=== PATIENT | female | born 1955 | race Two or more races ===

== ENCOUNTER → 2024-07-22 | Outpatient (CLI) | payer OTHER, MEDICAID, SELFPAY ==
--- NOTE | 2024-07-22 14:05 | XR_ITS ---
Examination: Bone densitometry Date and time of exam:July 22, 2024 1414 hours INDICATIONS: Menopause age 50, family history mother osteoporosis, history postmenopausal left wrist fracture, personal history osteopenia Technique: Lumbar spine and hip total bone mineralization values of an calculated. Peak reference and age match control results have been displayed. Findings: Lumbar spine total bone mineralization is0.964 gm/cm2. This is 0.8 standard deviations below peak reference. This is 1.3 standard deviations above age-matched controls. Hip total bone mineralization is 0.925 gm/cm2 This is 0.3 standard deviations below peak reference. This is 1.1 standard deviations above age-matched controls Impression: There is normal mineralization based on lumbar spine measurements. There is osteopenia based on hip measurements Lumbar mineralization is increase 7.3% compared with April 29, 2022 Hip mineralization is increased 1.4% compared with April 29, 2022
== END | disposition home or self-care (01) ==
PROVIDERS: Referring Provider Nurse Practitioner Family; Visit Provider Nurse Practitioner Family
DX: M85.88 Other specified disorders of bone density and structure, other site (principal)
CPT/HCPCS: 77080